=== PATIENT | female | born 1980 | race Asian ===

== ENCOUNTER 2018-03-28 14:34 | Inpatient (IN) | END 2018-04-06 17:00 | disposition home or self-care (01) | DRG 750 ==

== ENCOUNTER 2018-06-03 14:02 | Emergency (ER) | END 2018-06-03 16:37 | disposition home or self-care (01) ==

== ENCOUNTER 2019-03-18 05:58 | Day surgery (SDC) | payer OTHER ==
[2019-03-18] VITALS (15 sets, daily range): BP systolic 100–146; BP diastolic 72–92; PULSE 64–108; RESP 11–36; Ht 157.5 cm; Wt 72.2 kg
[~2019-03-18] VITALS: Ht 157.5 cm; Wt 72.2 kg
[~2019-03-18 05:58] MED LIST: CEPH-443 PO; FLUC100T PO; SITA1TAB5 PO
[2019-03-18] MEDS ORDERED: CIPROFLOXACIN 400 MG in D5W 200 ML IVPB SCH (06:00)
--- NOTE | 2019-03-18 06:42 | PREAC ---
Date/Time of Note Date/Time of Note DATE: 03/18/19 TIME: 06:40 Anesthesia Eval and Record Evaluation Time Pre-Procedure Interview DATE: 03/18/19 TIME: 06:40 Age 39 Sex female NPO: 8 hrs Preoperative diagnosis Cystitis Planned procedure Cystoscopy, Biopsy Past Medical History Past Medical History: Includes Endo: Diabetes Surgery & Anesthesia Issues No known issue Meds Anticoagulation: No Beta Bayron within 24 hr: No Reason Beta Bayron not given: Pt. not on B-Bayron Active Scripts Cephalexin* (Keflex*) 500 Mg Capsule, 500 MG PO TID for 10 Days, CAP Prov:JEWEL STEVENS PA-C 06/03/18 Fluconazole* (Diflucan*) 100 Mg Tablet, 100 MG PO DAILY for 10 Days, TAB Prov:RACHEAL DWYER 04/05/18 Reported Medications Sitagliptin Phos/Metformin HCl (Janumet 50-1,000 mg Tablet) 1 Each Tablet, 1 EACH PO DAILY, TAB 03/28/18 Current Medications Ciprofloxacin/ Dextrose 200 ml @ 200 mls/hr PREOP IVPB ; Start 03/18/19 at 06:00; Stop 03/18/19 at 17:00 Meds reviewed: Yes Allergies Coded Allergies: No Known Allergy (Unverified , 03/28/18) Allergies Reviewed: Yes Labs/Studies Labs Reviewed: Reviewed by anesthesiologist test: Negative Pre-procedure Exam Airway: Adequate mouth opening Mallampati: Mallampati II Teeth: Normal Lung: Normal Heart: Normal ASA Physical Status ASA physical status: 2 Emergency: None Planned Anesthetic General/MAC: LMA Pre-operative Attestations Prior to commencing anesthesia and surgery, the patient was re-evaluated, there was verification of: *The patient's identity *The results of appropriate recent lab work and preoperative vital signs *The above evaluation not changing prior to induction *Anesthetic plan, risk benefits, alternative and complications discussed with patient/family; questions answered; patient/family understands, accepts and wishes to proceed. MAGO MEYER MD March 18, 2019 06:42
[2019-03-18] MEDS ORDERED: PROPOFOL 20 ML ONE (06:45)
[2019-03-18] MEDS ORDERED: CEFAZOLIN 1 GM INJ ONE (06:45)
[2019-03-18] MEDS ORDERED: MIDAZOLAM 1 MG/ML 2 ML INJ ONE (06:46)
[2019-03-18] MEDS ORDERED: METF100010 PO (06:51)
[2019-03-18] MEDS ORDERED: SITA100T11 PO (06:52)
[2019-03-18] MEDS ORDERED: IOHEXOL 300MG/ML 30 ML BTL ONE (07:27)
--- NOTE | 2019-03-18 07:44 | HPN ---
Date/Time of Note Date/Time of Note DATE: 03/18/19 TIME: 07:43 Interval H&P Admission Note Pt. seen H&P reviewed: No system changes has marked amount of continued vaginal burning pain CHER BROWN March 18, 2019 07:44
[2019-03-18] MEDS ORDERED: CIPROFLOXACIN 400MG/D5W 200 ML ONE (07:47)
[2019-03-18] MEDS ORDERED: INDIGOTINDISULFONATE 0.8% 5 ML INJ ONE (08:22)
[2019-03-18] MEDS ORDERED: BELLADONNA ALK/OPIUM SUPP PR ONE (08:30)
[2019-03-18] MEDS ORDERED: LIDOCAINE 2% 20 ML UROJET SYRINGE ONE (08:43)
--- NOTE | 2019-03-18 09:21 | PAC ---
Date/Time of Note Date/Time of Note DATE: 03/18/19 TIME: 09:17 Post-Anesthesia Notes Post-Anesthesia Note Last documented vital signs 140/79, 92, 98%, 97F Activity: WNL Respiratory function: WNL Cardiovascular function: WNL Mental status: Baseline Pain reasonably controlled: Yes Hydration appropriate: Yes Nausea/Vomiting absent: Yes MAGO MEYER MD March 18, 2019 09:21
[2019-03-18] MEDS ORDERED: HYDROmorphONE 1 MG/5 ML IV SYRINGE IV PRN (09:30)
[2019-03-18] MEDS ORDERED: OXYCODONE/ACETAMINOPHEN (5/325) TAB PO PRN (09:30)
--- NOTE | 2019-03-18 09:33 | PDOCDIS ---
Discharge Instructions DIAGNOSIS Discharge Diagnosis Cystitis, ureteral stricture CONDITION [id number] Patient Condition: [id number] Fair HOME CARE INSTRUCTIONS: Camille Diet Instructions: Rachel Regular ACTIVITY: [id number] Activity Restrictions: [id number] Slowly Increase Activity [id number] Bathing Restrictions: [id number] Shower FOLLOW UP/APPOINTMENTS Follow-up Plan Follow up in office in 2 weeks for removal of stent and discuss pathology results REFERRALS Camille Referring Provider: CHER Rodriguez Other Referrals None OTHER ORDERS: Other Orders: Hydration with water Light activity May have blood in urine Pyridium as needed for pain, will stain urine dark orange - red No sexual activity Extra Stength Tylenol is ok Hold Aspirin and Ibuprofen as needed CHER BROWN March 18, 2019 09:33
[2019-03-18] MEDS: ONDANSETRON 4 MG INJ IV PRN ×2 (09:35→11:08)
--- NOTE | 2019-03-18 09:38 | OPR ---
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
--- NOTE | 2019-03-18 10:42 | OPR ---
DATE OF OPERATION: 03/18/2019 PREOPERATIVE DIAGNOSES: Cystitis, right hydronephrosis. POSTOPERATIVE DIAGNOSES: Hemorrhagic cystitis, distal right ureteral stricture was secondary hydrour eteronephrosis. OPERATION PERFORMED: Cystoscopy, multiple bladder biopsies, endoscopic treatment of the large bladde r lesion, right retrograde pyelogram, dilation of distal right ureteral stricture, right ureteroscopy with endoscopic removal of ureteral lesion, insertion of right ureteral stent. COMPLICATIONS: None. SPECIMEN: Multiple biopsies of the posterior wall and right lateral wall lesion right distal ureter. ESTIMATED BLOOD LOSS: Less than 5 mL. COMPLICATIONS: None. DESCRIPTION OF PROCEDURE: The patient was brought to the operating room and placed on the operating table in the supine lithotomy position after being evaluated in the recovery room where the patient s tates she is having significant amount of vaginal and bladder pain. She received preoperative antibi otic therapy. Sequential compression devices were applied. A timeout was undertaken. A KUB with ob liques was obtained, which demonstrated normal bowel gas pattern and normal bony structures. Rigid c ystoscopy was undertaken today with a 12-degree, 30-degree and 70-degree angle lens. No abnormalitie s of the urethra could be appreciated. The bladder was inspected in a systematic fashion. This was difficult secondary to the patient's bladder not distending well and immediately resulting in bleedin g. I was not able to visualize the right or left ureteral orifice. Multiple petechial regions on th e right hemitrigone were appreciated as well as extending onto the posterior wall and right lateral w all. A definitive circular yellow scar tissue/scab was appreciated on the right hemitrigone. Endosc opic evaluation was once again limited as she immediately was oozing from the bladder lining on the p osterior wall extending onto the trigone on the right side and onto the right lateral wall, as I coul d not visualize where the right ureteral orifice was and ampule of indigo carmine was administered wi th hydration. This demonstrated that the ureteral orifice was in the center of this deep yellow scab on the right hemitrigone. A biopsy of this region was not undertaken as I was very concerned that t his would disrupt the meatal opening to the ureteral orifice. A 5-Occitan open-ended catheter as well as a wire was unable to be instilled into the ureteral orifice due to the angulation and thus the ur eteroscope was inserted into the bladder and placed up to the level of the ureteral orifice. This al lowed for a wire to be placed up to the level of the renal pelvis under fluoroscopic guidance. Overl carline the wire, a 5-Occitan open-ended catheter was inserted and a retrograde pyelogram was undertaken demonstrating hydroureteronephrosis with marked blunting of the major and minor calices and columniza tion of contrast down to the distal ureter where a filling defect was appreciated. Utilizing the efren l lumen catheter, a secondary wire was placed up to the level of the renal pelvis, which allow for ur eteroscopy at the level of the ureterovesical junction, a stricture was appreciated and with gentle m anipulation and the utilization of 2 Amplatz wires, the ureteroscope was easily inserted proximal to this region, at which point scar tissue was appreciated and an intraluminal portion of yellow tissue was noted. This was placed in a biopsy cup and sent to pathology for further evaluation. The ureter oscope was passed proximally into a dilated ureter. No other abnormality could be appreciated. The distal ureter was noted to be well dilated secondary to passing of the scope in an antegrade and retr ograde fashion. The secondary wire was removed and overlying the initial wire, a 24 cm 4.8-Occitan do uble-J ureteral stent was inserted with the proximal aspect coiling within the renal pelvis and the d istal aspect coiling with the bladder. Attached to the distal end was a tape pursestring, propositio n was confirmed with direct vision fluoroscopy and a KUB with gentle manipulation. Superficial biops ies were then obtained from the right lateral wall and the posterior wall and adjacent to the right u reteral orifice as the tissue easily bled and it appears that she has a very thin bladder lining. Ca re was taken to only obtain superficial tissue. Pinpoint hemostasis was obtained. There was continu ed oozing from the surrounding tissue and thus continued anticoagulation was undertaken until no furt her bleeding could be appreciated. On the left side of the posterior wall extending to the lateral w all, was a secondary discrete different lesion, which was very blanched and had calcification consist encies that are yellow in nature. A physician relations representative sample was additionally obtained and labeled post erior wall. Pinpoint hemostasis was obtained from this region. At this point, no further bleeding c ould be appreciated. Initially it was felt that multiple small petechial regions were consistent wit h Hunner's ulcers and the discrete Hunner's ulcers were coagulated. No active bleeding could be appr eciated. At this point, her bladder was emptied and 20 mL of 2% viscous lidocaine was instilled into her bladder. No suppository was placed into her rectum. She was transferred to recovery room in st able condition. Further intervention and evaluation pending clinical course and results of above. I mportance of removal of the stent within 3 months was additionally explained pre and postoperatively. If the patient can tolerate the stent, it will be maintained for 2 weeks' time to passively dilate the distal ureter. Dictated By: CHER BROWN MD EGR/NTS Conf#: [id number] DID#: [id number] CC: CHER BROWN MD;*EndCC*
== END 2019-03-18 11:34 | disposition home or self-care (01) ==
LOC: SDS 05:58
PROVIDERS: ATTEND Urology
DX: N30.90 Cystitis, unspecified without hematuria (principal); N32.89 Other specified disorders of bladder; N13.1 Hydronephrosis with ureteral stricture, not elsewhere classified; E11.9 Type 2 diabetes mellitus without complications; Z79.84 Long term (current) use of oral hypoglycemic drugs
CPT/HCPCS: 52332; 52344; 74430; 82962; 88305; C2617; J0744; J2250; J2405; J3010; Q9967; Z7512; Z7610; J0690

== ENCOUNTER 2019-07-20 22:18 | Emergency (ER) | payer OTHER ==
[~2019-07-20] VITALS: Ht 157.5 cm; Wt 72.3 kg
[~2019-07-20 22:18] MED LIST changes: -CEPH-443 PO; +CIPR500T4 PO; -FLUC100T PO; +FLUC200T PO; +HYDR-3980 PO; +HYDR-4011 PO; +IBUP-1542 PO; +METF-849 PO; +METF100010 PO; +NAR2I NS; +PANT40TA4 PO; +PENT100C2 ORAL; +PHEN-537 PO; +PHEN-538 PO; +SITA100T11 PO; -SITA1TAB5 PO; +SULF1TAB31 PO; +TRAM50TA2 PO
[2019-07-20 22:20] VITALS: Ht 157.5 cm; Wt 72.3 kg
[2019-07-20] MEDS ORDERED: KETOROLAC 15 MG INJ IV STA (23:26)
[2019-07-20] MEDS ORDERED: SOD CHLORIDE 0.9% 1,000 ML IV STA (23:26)
[2019-07-20] MEDS ORDERED: ONDANSETRON 4 MG INJ IV STA (23:26)
[2019-07-21] MEDS ORDERED: TRIMETHOPRIM/SULFAMETHOX (DS) TAB PO ONE (01:30)
[2019-07-21 02:09] VITALS: BP 141/77; PULSE 84; RESP 17
== END 2019-07-21 02:14 | disposition home or self-care (01) ==
LOC: E/R 22:18
DX: N30.01 Acute cystitis with hematuria (principal); E11.9 Type 2 diabetes mellitus without complications; Z79.84 Long term (current) use of oral hypoglycemic drugs
CPT/HCPCS: 36415; 80053; 81001; 81025; 83690; 85025; 96374; 96375; J1885; J2405; J7030; Z7502; Z7610